=== PATIENT | male | born 1990 | race African-American/Black ===

== ENCOUNTER 2017-03-16 13:09 | Emergency (ER) | payer SELFPAY ==
[~2017-03-16] VITALS: Ht 172.7 cm; Wt 66.6 kg
[2017-03-16 13:12] VITALS: BP 153/86
== END 2017-03-16 13:50 | disposition home or self-care (01) ==
LOC: ED 13:40
DX: L73.9 Follicular disorder, unspecified (principal); J45.909 Unspecified asthma, uncomplicated
CPT/HCPCS: 99283

== ENCOUNTER 2017-07-10 09:31 | Emergency (ER) | payer MEDICAID ==
[~2017-07-10] VITALS: Ht 172.7 cm; Wt 66.3 kg
[2017-07-10 09:36] VITALS: BP 106/70
== END 2017-07-10 10:45 | disposition home or self-care (01) ==
LOC: ED 10:08
DX: S53.431A Radial collateral ligament sprain of right elbow, initial encounter (principal); S53.441A Ulnar collateral ligament sprain of right elbow, initial encounter; A60.00 Herpesviral infection of urogenital system, unspecified; J45.909 Unspecified asthma, uncomplicated; X58.XXXA Exposure to other specified factors, initial encounter; Y93.89 Activity, other specified; Y92.89 Other specified places as the place of occurrence of the external cause; Y99.8 Other external cause status
CPT/HCPCS: 99284

== ENCOUNTER 2017-07-13 12:52 | Emergency (ER) | payer MEDICAID ==
[~2017-07-13] VITALS: Ht 172.7 cm; Wt 65.5 kg
[2017-07-13] MEDS ORDERED: KETOROLAC 30 MG/1 ML IM ONE (13:30)
[2017-07-13] MEDS ORDERED: KETOROLAC 30 MG/1 ML ONE (13:40)
[2017-07-13 15:38] VITALS: BP 115/70
== END 2017-07-13 16:04 | disposition home or self-care (01) ==
LOC: ED 14:18
DX: S42.494A Other nondisplaced fracture of lower end of right humerus, initial encounter for closed fracture (principal); J45.909 Unspecified asthma, uncomplicated; Y04.0XXA Assault by unarmed brawl or fight, initial encounter; Y93.89 Activity, other specified; Y99.8 Other external cause status; Y92.89 Other specified places as the place of occurrence of the external cause
CPT/HCPCS: 29105; 73080; 96372; 99284; J1885

== ENCOUNTER 2017-10-05 20:44 | Emergency (ER) | payer MEDICAID ==
[~2017-10-05] VITALS: Ht 172.7 cm; Wt 68.6 kg
[2017-10-05] MEDS ORDERED: FAMOTIDINE 20 MG TABLET PO ONE (21:30)
[2017-10-05] MEDS ORDERED: MAALOX/HYOSCYAMINE/LIDOCAINE 45 ML BTL PO ONE (21:30)
[2017-10-05] MEDS ORDERED: ONDANSETRON ODT 4 MG PO ONE (21:30)
[2017-10-05] MEDS ORDERED: ONDANSETRON ODT 4 MG ONE (21:42)
[2017-10-05] MEDS ORDERED: FAMOTIDINE 20 MG TABLET ONE (21:42)
[2017-10-05] MEDS ORDERED: MAALOX/HYOSCYAMINE/LIDOCAINE 45 ML BTL ONE (21:42)
[2017-10-05 22:13] LABS: HEMATOCRIT 45.7 % (39.2-51.8); WHITE BLOOD COUNT 8.8 x10^3/uL (3.4-10)
[2017-10-05 22:19] LABS: ASPARTATE AMINO TRANSFERASE 43 U/L (15-37); BLOOD UREA NITROGEN 10 mg/dL (7-18)
[2017-10-05 23:29] VITALS: BP 127/79
== END 2017-10-05 23:31 | disposition home or self-care (01) ==
LOC: ED 22:48 → MERGE 22:48 → ED 23:31
DX: K29.00 Acute gastritis without bleeding (principal); J45.909 Unspecified asthma, uncomplicated
CPT/HCPCS: 36415; 80053; 81003; 83690; 85025; 99284; Q0162

== ENCOUNTER 2019-04-23 11:05 | Emergency (ER) | payer MEDICAID ==
[~2019-04-23] VITALS: Ht 172.7 cm; Wt 65.8 kg
[2019-04-23 11:15] VITALS: BP 117/70
[2019-04-23] MEDS ORDERED: IBUPROFEN 200 MG TABLET PO ONE (12:00)
--- NOTE | 2019-04-23 12:05 | NUR ---
Patient/Caregiver given discharge instructions and they have confirmed that they understand the instructions. Patient educated regarding crutch use, patient ambulatory with steady gait with crutches
== END 2019-04-23 12:12 | disposition home or self-care (01) ==
LOC: ED 11:54
DX: S90.32XA Contusion of left foot, initial encounter (principal); J45.909 Unspecified asthma, uncomplicated; F17.200 Nicotine dependence, unspecified, uncomplicated; W20.8XXA Other cause of strike by thrown, projected or falling object, initial encounter; Y93.89 Activity, other specified; Y92.096 Garden or yard of other non-institutional residence as the place of occurrence of the external cause; Y99.8 Other external cause status
CPT/HCPCS: 99283

== ENCOUNTER 2019-09-29 15:19 | Emergency (ER) | payer MEDICAID ==
[~2019-09-29] VITALS: Ht 172.7 cm; Wt 68.3 kg
[2019-09-29] MEDS ORDERED: DEXAMETHASONE 4 MG TABLET ONE (16:24)
[2019-09-29] MEDS ORDERED: ACETAMINOPHEN 500 MG TABLET ONE (16:24)
[2019-09-29] MEDS ORDERED: ACETAMINOPHEN 500 MG TABLET PO ONE (16:30)
[2019-09-29] MEDS ORDERED: DEXAMETHASONE 4 MG TABLET PO ONE (16:30)
[2019-09-29 17:13] VITALS: BP 147/78
[2019-09-29] MEDS: BICILLIN-LA 1,200,000 UNITS/2 ML IM ONE ×2 (17:31→18:07)
--- NOTE | 2019-09-29 17:51 | NUR ---
ENTERED THE PATIENT'S ROOM TO GIVE BICILLIN, BUT PATIENT STATED THAT HIS IS ALLERGIC TO PENICILLINS. 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 HOWEVER, PATIENT CONTACTED HIS MOTHER WHO STATES THAT HE HAS HAD PENICILLIN BEFORE WITH NO PROBLEM. BICILLIN REORDERED FROM PHARMACY.
--- NOTE | 2019-09-29 18:24 | NUR ---
Patient given discharge instructions and they have confirmed that they understand the instructions. Patient ambulatory with steady gait.
== END 2019-09-29 18:24 | disposition home or self-care (01) ==
LOC: ED 18:15
DX: J02.0 Streptococcal pharyngitis (principal); F17.200 Nicotine dependence, unspecified, uncomplicated; J45.909 Unspecified asthma, uncomplicated
CPT/HCPCS: 87880; 96372; 99283; J0561

== ENCOUNTER 2020-03-06 16:42 | Emergency (ER) | payer MEDICAID ==
[~2020-03-06] VITALS: Ht 172.7 cm; Wt 72.9 kg
[2020-03-06] MEDS ORDERED: DEXAMETHASONE 4 MG TABLET PO ONE (17:30)
[2020-03-06] MEDS ORDERED: DEXAMETHASONE 4 MG TABLET ONE (17:31)
[2020-03-06 17:39] VITALS: BP 130/81
== END 2020-03-06 18:46 | disposition home or self-care (01) ==
LOC: ED 17:05
DX: J02.8 Acute pharyngitis due to other specified organisms (principal); B97.89 Other viral agents as the cause of diseases classified elsewhere; F17.200 Nicotine dependence, unspecified, uncomplicated; J45.909 Unspecified asthma, uncomplicated
CPT/HCPCS: 87081; 87880; 99283

== ENCOUNTER 2020-05-10 21:41 | Emergency (ER) | payer MEDICAID ==
[~2020-05-10] VITALS: Ht 172.7 cm; Wt 77.4 kg
[2020-05-10 21:47] VITALS: BP 138/82
[2020-05-10] MEDS ORDERED: CEFTRIAXONE 250 MG IM ONE (22:30)
[2020-05-10] MEDS ORDERED: AZITHROMYCIN 500 MG TABLET PO ONE (22:30)
[2020-05-10] MEDS ORDERED: CEFTRIAXONE 250 MG ONE (23:40)
[2020-05-10] MEDS ORDERED: AZITHROMYCIN 500 MG TABLET ONE (23:42)
[2020-05-11 00:11] LABS: MICROSCOPIC NOT IND
== END 2020-05-11 01:05 | disposition home or self-care (01) ==
LOC: ED 21:59
DX: M25.561 Pain in right knee (principal); Z20.2 Contact with and (suspected) exposure to infections with a predominantly sexual mode of transmission; J45.909 Unspecified asthma, uncomplicated
CPT/HCPCS: 73564; 81003; 87491; 87591; 96372; 99284; J0696

== ENCOUNTER 2020-07-27 17:41 | Emergency (ER) | payer MEDICAID ==
[~2020-07-27] VITALS: Ht 172.7 cm; Wt 81.0 kg
[2020-07-27 18:37] VITALS: BP 111/81
--- NOTE | 2020-07-27 19:40 | NUR ---
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
[2020-07-27 19:56] LABS: MICROSCOPIC INDICATED
[2020-07-27] MEDS ORDERED: LIDOCAINE-MPF 1%, 2ML ONE (21:14)
[2020-07-27] MEDS ORDERED: CEFTRIAXONE 250 MG ONE (21:14)
[2020-07-27] MEDS ORDERED: AZITHROMYCIN 500 MG TABLET ONE (21:14)
[2020-07-27] MEDS ORDERED: AZITHROMYCIN 500 MG TABLET PO ONE (21:30)
[2020-07-27] MEDS ORDERED: CEFTRIAXONE 250 MG IM ONE (21:30)
== END 2020-07-27 21:43 | disposition home or self-care (01) ==
LOC: ED 21:30
DX: J45.20 Mild intermittent asthma, uncomplicated (principal); N34.1 Nonspecific urethritis; R06.00 Dyspnea, unspecified; R30.0 Dysuria; R94.31 Abnormal electrocardiogram [ECG] [EKG]; F17.210 Nicotine dependence, cigarettes, uncomplicated
CPT/HCPCS: 71046; 81001; 87086; 87491; 87591; 93005; 96372; 99285; 99406; J0696; 87077

== ENCOUNTER 2020-09-01 12:16 | Emergency (ER) | payer MEDICAID ==
[~2020-09-01] VITALS: Ht 172.7 cm; Wt 81.9 kg
[2020-09-01 12:23] VITALS: BP 119/76
[2020-09-01] MEDS ORDERED: DEXAMETHASONE 4 MG TABLET ONE (13:57)
[2020-09-01] MEDS ORDERED: DEXAMETHASONE 4 MG TABLET PO ONE (14:00)
--- NOTE | 2020-09-01 14:05 | NUR ---
patient discharged from [facility]. patient ambulatory [id number] vss upon discharge
== END 2020-09-01 14:06 | disposition home or self-care (01) ==
LOC: ED 12:54
DX: J02.0 Streptococcal pharyngitis (principal); J45.909 Unspecified asthma, uncomplicated
CPT/HCPCS: 87081; 87147; 87880; 99283